=== PATIENT | male | born 1970 | race African-American/Black ===

== ENCOUNTER 2022-01-25 18:02 | Inpatient (IN) | payer OTHER ==
[2022-01-25 18:09] VITALS: BMI 25.8
[2022-01-25] MEDS ORDERED: LORazepam 2 MG/ML SDV VIAL IM ONE (18:28)
[2022-01-25] MEDS ORDERED: DICYCLOMINE HCL 10 MG CAPSULE PO PRN (18:29)
[2022-01-25] MEDS ORDERED: MAG HYDROX/AL HYDROX/SIMETH 30 ML UNIT-DOSE CUP PO PRN (18:29)
[2022-01-25] MEDS ORDERED: MAGNESIUM HYDROX 2400MG/30ML ORAL SUSPENSION 30 ML CUP PO PRN (18:29)
[2022-01-25] MEDS ORDERED: ACETAMINOPHEN 325 MG TABLET (FP) PO PRN ×2 (18:29)
[2022-01-25] MEDS ORDERED: P-EPHED 60MG/TRIPROLIDI 2.5MG TABLET PO PRN (18:29)
[2022-01-25] MEDS ORDERED: POLYETHYLENE GLYCOL (HEALTHYLAX) 3350 17 GM PACKET PO PRN (18:29)
[2022-01-25] MEDS ORDERED: BISMUTH SUBSALICYLATE 524 MG/30 ML PO PRN (18:29)
[2022-01-25] MEDS ORDERED: METHOCARBAMOL 500 MG TABLET PO PRN (18:29)
[2022-01-25] MEDS ORDERED: TRIMETHOBENZAMIDE HCL 200MG/2ML INJ IM ONE ×2 (18:29→18:48)
[2022-01-25] MEDS ORDERED: IBUPROFEN 600 MG TABLET (FP) PO PRN (18:29)
[2022-01-25] MEDS ORDERED: guaiFENesin 200 MG/10 ML 10 ML UNIT-DOSE CUPS PO PRN (18:29)
[2022-01-25] MEDS ORDERED: LOPERAMIDE HCL 2 MG CAPSULE PO PRN (18:29)
[2022-01-25] MEDS ORDERED: NICOTINE 10 MG CARTRIDGE (INHALER) IH PRN (18:29)
[2022-01-25] MEDS ORDERED: ONDANSETRON *ODT* 4 MG TABLET SL PRN (18:29)
[2022-01-25] MEDS ORDERED: BENZOCAINE/MENTHOL (CHLORASEPTIC ) LOZENGE MM PRN (18:29)
[2022-01-25] MEDS ORDERED: hydrOXYzine PAMOATE 25 MG CAPSULE (FP) PO PRN (18:29)
[2022-01-25] MEDS ORDERED: IBUPROFEN 400 MG TABLET (FP) PO PRN (18:29)
[2022-01-25] MEDS ORDERED: METOPROLOL TARTRATE 50 MG TABLET (FP) PO ONE (18:31)
[2022-01-25] MEDS ORDERED: chlordiazePOXIDE HCL 25 MG CAPSULE PO ONE (18:31)
[2022-01-25] MEDS ORDERED: chlordiazePOXIDE HCL 25 MG CAPSULE PO PRN (18:31)
[2022-01-25] MEDS ORDERED: chlordiazePOXIDE HCL 25 MG CAPSULE ONE (19:35)
[2022-01-25] MEDS ORDERED: METOPROLOL TARTRATE 25 MG TABLET (FP) ONE (19:35)
[2022-01-25] MEDS: MELATONIN 5 MG TABLETS PO SCH (22:50)
[2022-01-25] MEDS: chlordiazePOXIDE HCL 25 MG CAPSULE PO SCH (22:50)
[2022-01-25] MEDS: THIAMINE HCL 100 MG TABLET (FP) PO SCH (22:53)
[2022-01-26] MEDS: chlordiazePOXIDE HCL 25 MG CAPSULE PO SCH ×4 (06:14→22:30)
[2022-01-26] MEDS: PRENATAL VITAMINS W/ FOLIC ACID TABLET (FP) PO SCH (10:39)
[2022-01-26 10:56] LABS: HEMATOCRIT 40.6 % (35.4-49); HEMOGLOBIN 14.1 GM/dL (11.7-16.9); MCH 33.7 pg (25.7-33.7); MCHC 34.7 g/dl (32.0-35.9); MEAN PLT VOLUME 7.5 fl (7.5-11.1); PLATELET COUNT 183 10^3/uL (134-434); RBC 4.18 M/mm3 (4.00-5.60); RDW 12.7 % (11.9-15.9); WHITE BLOOD COUNT 3.3 K/mm3 (4.0-10.0)
[2022-01-26] MEDS ORDERED: ESCITALOPRAM OXALATE 20 MG TABLET PO ONE ×2 (11:09→12:56)
[2022-01-26 11:30] LABS: ALBUMIN 3.9 g/dl (3.4-5.0); BLOOD UREA NITROGEN 11.8 mg/dL (7-18); CALCIUM 9.7 mg/dL (8.5-10.1)
[2022-01-26 11:33] LABS: CREATININE 1.1 mg/dL (0.55-1.3)
[2022-01-26 11:35] LABS: BILIRUBIN,TOTAL 1.3 mg/dL (0.2-1); TOT PROT 7.1 g/dl (6.4-8.2)
[2022-01-26] MEDS: EMTRICITABINE/TENOFOV ALAFENAM (DESCOVY) TABLET PO SCH (14:57)
[2022-01-26] MEDS: DOLUTEGRAVIR SODIUM 50 MG TABLET (NON-FORMULARY) PO SCH (14:57)
[2022-01-26] MEDS: MELATONIN 5 MG TABLETS PO SCH (22:30)
[2022-01-26] MEDS: THIAMINE HCL 100 MG TABLET (FP) PO SCH (22:30)
[2022-01-27] MEDS: chlordiazePOXIDE HCL 25 MG CAPSULE PO SCH ×4 (05:36→22:52)
[2022-01-27] MEDS: EMTRICITABINE/TENOFOV ALAFENAM (DESCOVY) TABLET PO SCH (07:10)
[2022-01-27] MEDS: DOLUTEGRAVIR SODIUM 50 MG TABLET (NON-FORMULARY) PO SCH (07:10)
[2022-01-27] MEDS: ESCITALOPRAM OXALATE 20 MG TABLET PO SCH (10:39)
[2022-01-27] MEDS: PRENATAL VITAMINS W/ FOLIC ACID TABLET (FP) PO SCH (10:39)
[2022-01-27] MEDS: MELATONIN 5 MG TABLETS PO SCH (22:52)
[2022-01-27] MEDS: THIAMINE HCL 100 MG TABLET (FP) PO SCH (22:52)
[2022-01-28] MEDS ORDERED: chlordiazePOXIDE HCL 10 MG CAPSULE PO PRN
[2022-01-28] MEDS: chlordiazePOXIDE HCL 10 MG CAPSULE PO SCH ×4 (06:02→22:36)
[2022-01-28] MEDS: DOLUTEGRAVIR SODIUM 50 MG TABLET (NON-FORMULARY) PO SCH (07:23)
[2022-01-28] MEDS: EMTRICITABINE/TENOFOV ALAFENAM (DESCOVY) TABLET PO SCH (07:23)
[2022-01-28] MEDS: PRENATAL VITAMINS W/ FOLIC ACID TABLET (FP) PO SCH (10:22)
[2022-01-28] MEDS: ESCITALOPRAM OXALATE 20 MG TABLET PO SCH (10:22)
[2022-01-28] MEDS ORDERED: POTASSIUM CHLORIDE ORAL LIQUID 20 MEQ/15 ML PO ONE ×2 (10:30→14:30)
[2022-01-28] MEDS: MELATONIN 5 MG TABLETS PO SCH (22:36)
[2022-01-28] MEDS: THIAMINE HCL 100 MG TABLET (FP) PO SCH (22:36)
[2022-01-29] MEDS ORDERED: chlordiazePOXIDE HCL 10 MG CAPSULE PO SCH (05:00)
[2022-01-29 09:24] VITALS: BP 106/65; PULSE 77; RESP 16; TEMP 97.7
[2022-01-29] MEDS: EMTRICITABINE/TENOFOV ALAFENAM (DESCOVY) TABLET PO SCH (10:43)
[2022-01-29] MEDS: PRENATAL VITAMINS W/ FOLIC ACID TABLET (FP) PO SCH (10:44)
[2022-01-29] MEDS: DOLUTEGRAVIR SODIUM 50 MG TABLET (NON-FORMULARY) PO SCH (10:44)
[2022-01-29] MEDS: ESCITALOPRAM OXALATE 20 MG TABLET PO SCH (10:44)
[2022-01-30] MEDS ORDERED: chlordiazePOXIDE HCL 10 MG CAPSULE PO ONE (05:00)
== END 2022-01-29 10:42 | disposition home or self-care (01) | DRG 775 ==
LOC: YASAS 18:02 → Y6N 19:52
PROVIDERS: ADMIT Allergy & Immunology; ATTEND Surgery
PROC: HZ2ZZZZ Detoxification Services for Substance Abuse Treatment (ICD-10-PCS; principal; 2022-01-25)
DX: F10.230 Alcohol dependence with withdrawal, uncomplicated (principal); F17.210 Nicotine dependence, cigarettes, uncomplicated; F10.280 Alcohol dependence with alcohol-induced anxiety disorder; F10.24 Alcohol dependence with alcohol-induced mood disorder; F41.9 Anxiety disorder, unspecified; F32.A Depression, unspecified; Z21 Asymptomatic human immunodeficiency virus [HIV] infection status; Z86.19 Personal history of other infectious and parasitic diseases
CPT/HCPCS: 36415; 80053; 85027; 86593; 86780; 87811; C9803-CS; U0003; U0005